=== PATIENT | male | born 1975 | race Caucasian/White ===

== ENCOUNTER 2020-09-15 17:40 | Emergency (ER) | payer OTHER | END 2020-09-15 19:00 | disposition left against medical advice (07) | LOC: ER1 17:40 | DX: R11.10 Vomiting, unspecified (principal); R10.9 Unspecified abdominal pain; Z86.19 Personal history of other infectious and parasitic diseases; Z53.21 Procedure and treatment not carried out due to patient leaving prior to being seen by health care provider ==

== ENCOUNTER 2020-10-23 13:54 | Emergency (ER) | payer OTHER ==
[2020-10-23 17:24] LABS: HEMOGLOBIN 16.7 gm/dl (14.0-17.5); RED BLOOD COUNT 5.15 M/UL (4.20-5.50); WHITE BLOOD COUNT 10.3 K/UL (4.5-11.0)
[2020-10-23 18:02] LABS: BUN/CREATININE RATIO 10 (0-10)
[2020-10-23] MEDS ORDERED: BENTYL 20MG TAB20 MG PO (20:31)
[2020-10-23] MEDS ORDERED: OMEPRAZOLE20 M1 PO (20:31)
[2020-10-23] MEDS ORDERED: ONDANSETRON ODT4 MG SL (20:31)
== END 2020-10-23 21:15 | disposition home or self-care (01) ==
LOC: ER1 13:54
PROVIDERS: Physician Assistant
DX: K52.9 Noninfective gastroenteritis and colitis, unspecified (principal); R07.81 Pleurodynia; F17.200 Nicotine dependence, unspecified, uncomplicated; Z88.8 Allergy status to other drugs, medicaments and biological substances; Z90.49 Acquired absence of other specified parts of digestive tract
CPT/HCPCS: 71111; 80053; 81001; 82550; 82553; 83690; 83874; 84484; 85025; 85379; 93005; 96372; 96374; 96375; 99284; C9113; J0500; J1885; J2270; J2405; Q9967

== ENCOUNTER 2021-06-06 13:31 | Emergency (ER) | payer OTHER ==
[~2021-06-06 13:31] MED LIST: BENTYL 20MG TAB20 MG PO; OMEPRAZOLE20 M1 PO; ONDANSETRON ODT4 MG SL
[2021-06-06 14:08] LABS: HEMOGLOBIN 16.2 gm/dl (14.0-17.5); RED BLOOD COUNT 4.99 M/UL (4.20-5.50); WHITE BLOOD COUNT 9.1 K/UL (4.5-11.0)
[2021-06-06 14:45] LABS: BUN/CREATININE RATIO 13 (0-10)
== END 2021-06-06 17:21 | disposition home or self-care (01) ==
LOC: ER1 13:31
PROVIDERS: Physician Assistant
DX: R07.89 Other chest pain (principal); R10.9 Unspecified abdominal pain; R11.2 Nausea with vomiting, unspecified; Z90.49 Acquired absence of other specified parts of digestive tract; F17.210 Nicotine dependence, cigarettes, uncomplicated; Z88.6 Allergy status to analgesic agent
CPT/HCPCS: 71045; 80053; 81001; 82550; 82553; 83690; 83874; 84484; 85025; 85379; 93005; 96374; 96375; 96376; 99285; J1885; J2270; J2405; Q9967; U0003

== ENCOUNTER 2022-02-04 18:47 | Emergency (ER) | payer OTHER ==
[2022-02-04 20:15] LABS: HEMOGLOBIN 17.2 gm/dl (14.0-17.5); RED BLOOD COUNT 5.27 M/UL (4.20-5.50); WHITE BLOOD COUNT 16.3 K/UL (4.5-11.0)
[2022-02-04 20:38] LABS: BUN/CREATININE RATIO 15 (0-10)
[2022-02-04] MEDS ORDERED: ZOFRAN ODT 4 MG4 MG GT (22:45)
== END 2022-02-04 23:05 | disposition home or self-care (01) ==
LOC: ER1 18:47
PROVIDERS: Physician Assistant
DX: R10.9 Unspecified abdominal pain (principal); R11.0 Nausea; F17.210 Nicotine dependence, cigarettes, uncomplicated; Z90.49 Acquired absence of other specified parts of digestive tract; Z88.6 Allergy status to analgesic agent
CPT/HCPCS: 80053; 81001; 83690; 85025; 96374; 96375; 96376; 99284; J1200; J1885; J2270; J2405; Q9967

== ENCOUNTER 2022-06-10 17:44 | Emergency (ER) | payer OTHER ==
[~2022-06-10 17:44] MED LIST changes: +ZOFRAN ODT 4 MG4 MG GT
[2022-06-10 18:46] LABS: HEMOGLOBIN 16.2 gm/dl (14.0-17.5); RED BLOOD COUNT 5.03 M/UL (4.20-5.50)
[2022-06-10 19:15] LABS: BUN/CREATININE RATIO 15 (0-10)
[2022-06-10] MEDS ORDERED: AMOX TR-K CLV1 EAC4 PO (23:16)
[2022-06-10] MEDS ORDERED: ONDANSETRON ODT4 MG SL (23:16)
[2022-06-10] MEDS ORDERED: MELOXICAM15 MG PO (23:16)
== END 2022-06-11 | disposition home or self-care (01) ==
LOC: ER1 17:44
PROVIDERS: Student in an Organized Health Care Education/Training Program
DX: K52.9 Noninfective gastroenteritis and colitis, unspecified (principal); Z87.442 Personal history of urinary calculi; Z90.49 Acquired absence of other specified parts of digestive tract; Z88.8 Allergy status to other drugs, medicaments and biological substances; F17.200 Nicotine dependence, unspecified, uncomplicated
CPT/HCPCS: 80053; 81001; 83605; 83690; 85025; 96374; 96375; 99284; J1885; J2270; J2405; Q9967